=== PATIENT | female | born 1970 | race Two or more races ===

== ENCOUNTER 2018-02-12 18:45 | Emergency (ER) | payer OTHER ==
[~2018-02-12] VITALS: Ht 160 cm; Wt 72.3 kg
[~2018-02-12 18:45] MED LIST: BACTDS PO
[2018-02-12 19:07] VITALS: Ht 160 cm; Wt 72.3 kg
[2018-02-12] MEDS ORDERED: PROM6.2515 PO (21:33)
[2018-02-12 21:48] VITALS: BP 129/75; PULSE 73; RESP 18
--- NOTE | 2018-02-12 23:32 | ERD ---
ER Documentation Chief Complaint Chief Complaint CPUGH X1WK (BROCK RUSH PA-C) HPI 48 yr old male presenting with cough times 1 week. Patient has not had a fever. She has had a dry cough. Has not taken medications. Denies medical problems. NKDA. Surgical history is breast implants. Social history denies (BRCOK RUSH PA-C) Correction-patient is a 48-year-old female (FELIX MARCELO MD) ROS All systems reviewed and are negative except as per history of present illness. (BROCK RUSH PA-C) Medications Home Meds Active Scripts Promethazine Hcl* (Promethazine Hcl* Syrup) 6.25 Mg/5 Ml Syrup, 6.25 MG PO Q6H PRN for COUGH, #100 ML Prov:BROCK RUSH PA-C 02/12/18 Sulfamethoxazole-Trimethoprim* (Bactrim* DS) 800-160 Mg Tab, 1 TAB PO BID for 14 Days, TAB Prov:KATHY ANN DO 11/08/14 Allergies Allergies: Coded Allergies: No Known Allergy (Unverified , 02/12/18) PMhx/Soc History of Surgery: Yes (CS X1 OVARIAN CYST REMOVAL) Anesthesia Reaction: No Hx Neurological Disorder: No Hx Respiratory Disorders: No Hx Cardiac Disorders: No Hx Psychiatric Problems: No Hx Miscellaneous Medical Probl: Yes (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 Conjunctivae are pink. Pupils equal, round, and reactive to light. There is no scleral icterus. Tympanic membranes clear bilaterally. Oropharynx clear. No nystagmus or photophobia. NECK: C-spine is soft and supple. There is no meningismus. There is no cervical lymphadenopathy. CHEST: Clear to auscultation bilaterally. There are no rales, wheezes or rhonchi. HEART: Regular rate and rhythm. No murmurs, clicks, rubs or gallops. No S3 or S4. (BROCK RUSH PA-C) Procedures/MDM DIAGNOSTIC IMAGING REPORT Patient: BRIAN LINDQUIST : 1970 Age: 48 Sex: F MR #: [id number] DOS: 02/12/18 2030 Ordering MD: MONISHA RUSH PA-C Location: [facility] Room/Bed: PROCEDURE: XR Chest AP portable CLINICAL INDICATION: Cough TECHNIQUE: An AP portable radiograph of the chest was submitted. COMPARISON: 09/23/2013 FINDINGS: Support Hardware: None Cardiovascular: The cardiovascular silhouette appears unremarkable. Lung Alves: The lung alves appear clear with no nodule, alveolar infiltrate, or interstitial prominence evident. Pleural Spaces: No pneumothorax or pleural effusion is identified. Osseous Structures: The osseous structures appear intact. Soft Tissues: The soft tissues appear generous. IMPRESSION: Stable and unremarkable portable chest. MDM: 48-year-old female presenting with cough. I have low suspicion for respiratory distress or hypoxia. I have low suspicion for pneumonia. Patient likely has viral cough. I do not feel antibiotics are indicated. Patient is discharged with supportive medications and told to follow-up with primary care within 1-2 days for close evaluation. All questions answered at discharge (BROCK RUSH PA-C) Departure Diagnosis: Primary Impression: Cough Condition: Stable Patient Instructions: Cough, Chronic, Uncertain Cause, (Adult) Referrals: COMMUNITY CLINICS YOU HAVE RECEIVED A MEDICAL SCREENING EXAM AND THE RESULTS INDICATE THAT YOU DO NOT HAVE A CONDITION THAT REQUIRES URGENT TREATMENT IN THE EMERGENCY DEPARTMENT. FURTHER EVALUATION AND TREATMENT OF YOUR CONDITION CAN WAIT UNTIL YOU ARE SEEN IN YOUR DOCTORS OFFICE WITHIN THE NEXT 1-2 DAYS. IT IS YOUR RESPONSIBILITY TO MAKE AN APPOINTMENT FOR FOLOW-UP CARE. IF YOU HAVE A PRIMARY DOCTOR --you should call your primary doctor and schedule an appointment IF YOU DO NOT HAVE A PRIMARY DOCTOR YOU CAN CALL OUR PHYSICIAN REFERRAL HOTLINE AT IF YOU CAN NOT AFFORD TO SEE A PHYSICIAN YOU CAN CHOSE FROM THE FOLLOWING COM [facility] [address] [facility] [address] [facility] [address] [facility] [address] [facility] [address] [facility]. [facility]. [address] Additional Instructions: FOLLOW UP WITH YOUR PRIMARY CARE PHYSICIAN TOMORROW.Return to this facility if you are not improving as expected. BROCK RUSH PA-C Feb 12, 2018 23:32 FELIX MARCELO MD Feb 14, 2018 15:42
[2018-03-17] MEDS ORDERED: PROM6.2515 PO (11:19)
[2018-03-17] MEDS ORDERED: ALBU8.5H8 INH (11:19)
[2018-03-17] MEDS ORDERED: MED4DP PO (11:19)
== END 2018-02-12 21:50 | disposition home or self-care (01) ==
LOC: FTE 18:45
DX: R05 Cough (principal)
CPT/HCPCS: 71045; Z7502

== ENCOUNTER 2018-06-23 13:43 | Emergency (ER) | payer OTHER ==
[~2018-06-23] VITALS: Ht 167.6 cm; Wt 72.4 kg
[~2018-06-23 13:43] MED LIST changes: +ALBU8.5H8 INH; +MED4DP PO; +PROM6.2515 PO
[2018-06-23 13:51] VITALS: Ht 167.6 cm; Wt 72.4 kg
--- NOTE | 2018-06-23 15:05 | ERD ---
ER Documentation Chief Complaint Chief Complaint Complains of lower back pain with fever x 2 weeks HPI 48-year-old female, previously healthy, presents the emergency department, complaining of 2 weeks with lower back pain, associated with dysuria, urinary frequency and subjective fever. The patient denies vaginal discharge, no nausea or vomiting. ROS All systems reviewed and are negative except as per history of present illness. Medications Home Meds Active Scripts Ibuprofen* (Motrin*) 400 Mg Tab, 400 MG PO Q6H PRN for PAIN AND OR ELEVATED TEMP, #30 TAB Prov:NIEVES ALCOCER MD 06/23/18 Ciprofloxacin Hcl* (Ciprofloxacin Hcl*) 250 Mg Tablet, 250 MG PO BID for 5 Days, #10 TAB Prov:NIEVES ALCOCER MD 06/23/18 Albuterol Sulfate* (Proair HFA*) 8.5 Gm Hfa.aer.ad, 2 PUFF INH Q4, #1 INHALER Prov:BROCK RUHS PA-C 03/17/18 Promethazine Hcl* (Promethazine Hcl* Syrup) 6.25 Mg/5 Ml Syrup, 6.25 MG PO Q6H PRN for COUGH, #100 ML Prov:BROCK RUSH PA-C 03/17/18 Methylprednisolone* (Medrol* DOSE PACK) 4 Mg/Dose-Pack Tab.ds.pk, 4 MG PO . DI RECTED, #1 PACKET Prov:BROCK RUSH PA-C 03/17/18 Promethazine Hcl* (Promethazine Hcl* Syrup) 6.25 Mg/5 Ml Syrup, 6.25 MG PO Q6H PRN for COUGH, #100 ML Prov:BROCK RUSH PA-C 02/12/18 Sulfamethoxazole-Trimethoprim* (Bactrim* DS) 800-160 Mg Tab, 1 TAB PO BID for 14 Days, TAB Prov:KATHY ANN DO 11/08/14 Allergies Allergies: Coded Allergies: No Known Allergy (Unverified , 02/12/18) PMhx/Soc History of Surgery: Yes (CS X1 OVARIAN CYST REMOVAL) Anesthesia Reaction: No Hx Neurological Disorder: No Hx Respiratory Disorders: No Hx Cardiac Disorders: No Hx Psychiatric Problems: No Hx Miscellaneous Medical Probl: Yes (VARICOSE VEINS, ovarian cyst) Hx Alcohol Use: No Hx Substance Use: No Hx Tobacco Use: No Smoking Status: Never smoker FmHx Family History: No diabetes, No coronary disease Physical Exam Vitals Vital Signs Date Temp Pulse Resp B/P (MAP) Pulse Ox O2 O2 Flow FiO2 Time Delivery Rate 06/23/18 98.8 75 18 117/83 96 Room Air 16:24 (94) 06/23/18 37.3 15:22 06/23/18 37.3 15:22 06/23/18 99.2 78 20 127/84 100 13:51 (98) Physical Exam Const: No acute distress Head: Atraumatic Eyes: Normal Conjunctiva ENT: Normal External Ears, Nose and Mouth. Neck: Full range of motion. No meningismus. Resp: Clear to auscultation bilaterally Cardio: Regular rate and rhythm, no murmurs Abd: Soft, non tender, non distended. Normal bowel sounds Skin: No petechiae or rashes Back: No midline or flank tenderness Ext: No cyanosis, or edema Neur: Awake and alert Psych: Normal Mood and Affect Results 24 hrs Laboratory Tests Test 06/23/18 15:55 06/23/18 15:56 POC Beta HCG, Qualitative NEGATIVE Bedside Urine pH (LAB) 5.5 Bedside Urine Protein (LAB) 1+ Bedside Urine Glucose (UA) Negative Bedside Urine Ketones (LAB) Negative Bedside Urine Blood 3+ Bedside Urine Nitrite (LAB) Negative Bedside Urine Leukocyte Esterase (L 1+ Current Medications Medications Dose Sig/Gibran Start Time Status Last (Trade) Ordered Route PRN Stop Time Admin Dose Reason Admin Ibuprofen 400 mg ONCE ONCE 06/23/18 DC 06/23/18 (Motrin) PO 15:30 15:22 06/23/18 15:31 650 mg ONCE ONCE 06/23/18 DC 06/23/18 Acetaminophen PO 15:30 15:22 (Tylenol 06/23/18 15:31 Tab) Procedures/MDM Differential diagnosis include but not limited to: UTI, colitis, gastroenteritis, kidney stones, irritable bowel syndrome, inflammatory bowel syndrome, malabsorption syndrome, cholelithiasis, food intolerance, medication side effect, pancreatitis, diverticulitis, bowel obstruction. Low suspicion for acute abdomen Physical examination and clinical presentation consistent most likely with urinary tract infection. During the ED course the patient remained stable, no new complaints. Results and clinical impression discussed with patient who agrees with management. The patient is stable to be treated outpatient and will be discharged home, some side effects of prescribed medications (headache, rash, nausea, vomiting, diarrhea, drowsiness, habituation, bleeding, hypertension, interactions with other medications) were reviewed. The patient was instructed to follow up with the primary care provider in the n ext 48h. If symptoms persist, worsen or new symptoms develop, then patient should return to the ED immediately. Instructions explained and given directly by me to the patient with acknowledgment and demonstrated understanding. Disclaimer: Inadvertent spelling and grammatical errors are likely due to EHR/dictation software use and do not reflect on the overall quality of patient care. Also, please note that the electronic time recorded on this note does not necessarily reflect the actual time of the patient encounter. Departure Diagnosis: Primary Impression: UTI (lower urinary tract infection) Condition: Stable Additional Instructions: Muchas walt por [facility] para rothman servicio. Esperamos que en rothman visita a la lucrecia de emergencia rothman problema medico haya sido solucionado y que se sienta mucho mejor. Para estar seguros que rothman mejoria sigue en proceso, le pedimos el favor de hacer vamsi cristopher de seguimiento medico con rothman doctor primario en los proximos 2-4 walsh. Lleve con usted estos documentos y las medicinas recetadas. Si guanakito sintomas empeoran, NO SE ESPERE, por favor regrese a lucrecia de emergencia INMEDIATAMENTE. En kristin que usted no tenga un mdico de atencin primaria: Llame al mdico o clnica comunitaria de referencia que aparece abajo torsten la s horas de consultorio para hacer vamsi cristopher para que le vean. CLINICAS: [facility] 009 [phone] [address] [facility] 660 [phone] [address] [facility] 518 [phone] [address] [facility] [phone] [facility] 600 [phone] [address] [facility]. [phone] NIEVES MOCK MD June 23, 2018 15:05
[2018-06-23] MEDS ORDERED: ACETAMINOPHEN 325 MG TAB PO ONE (15:30)
[2018-06-23] MEDS ORDERED: IBUPROFEN 200 MG TAB PO ONE (15:30)
[2018-06-23] MEDS ORDERED: CIPR-193 PO (16:09)
[2018-06-23] MEDS ORDERED: IBUP-1561 PO (16:10)
[2018-06-23 16:24] VITALS: BP 117/83; PULSE 75; RESP 18
== END 2018-06-23 16:20 | disposition home or self-care (01) ==
LOC: FTE 13:43
DX: N39.0 Urinary tract infection, site not specified (principal); R10.2 Pelvic and perineal pain
CPT/HCPCS: 76830; 76856; 81003; 81025; Z7502; Z7610

== ENCOUNTER 2018-10-10 09:52 | Emergency (ER) | payer OTHER ==
[~2018-10-10] VITALS: Ht 160 cm; Wt 70.0 kg
[~2018-10-10 09:52] MED LIST changes: +CEPH-443 PO; +CIPR-193 PO; +IBUP-1542 PO; +IBUP-1561 PO
[2018-10-10 10:13] VITALS: Ht 160 cm; Wt 70.0 kg
[2018-10-10] MEDS ORDERED: KETOROLAC 15 MG INJ IV STA (12:33)
[2018-10-10] MEDS ORDERED: SOD CHLORIDE 0.9% 1,000 ML IV STA (12:33)
[2018-10-10] MEDS ORDERED: CEFTRIAXONE 1 GM/50 ML (PMX) 50 ML IVPB ONE (13:00)
[2018-10-10 14:10] VITALS: BP 123/85; PULSE 60; RESP 18
== END 2018-10-10 14:10 | disposition home or self-care (01) ==
LOC: E/R 09:52
DX: N39.0 Urinary tract infection, site not specified (principal)
CPT/HCPCS: 36415; 80053; 81001; 83690; 85025; 87086; 96374; 96375; J0696; J1885; J7030; Z7502